=== PATIENT | male | born 1985 | race Caucasian/White ===

== ENCOUNTER 2016-11-01 08:34 | Emergency (ER) | payer SELFPAY ==
[~2016-11-01] VITALS: Ht 185.4 cm; Wt 95.5 kg
[~2016-11-01 08:34] MED LIST: BACT800T5 PO; CEPH500C3 PO; IBUP600T26 PO; LORTA5 PO; METH10TA PO
[2016-11-01 08:36] VITALS: BP 169/91; PULSE 80; RESP 17; TEMP 98; O2SAT 97
[2016-11-01] MEDS ORDERED: SODIUM CHLOR 0.9% 1000 ML INJ 1,000 ML IV SCH (11:29)
[2016-11-01 11:30] VITALS: BP 135/82; PULSE 69; RESP 18; O2SAT 97
[2016-11-01] MEDS ORDERED: SODIUM CHLORIDE 0.9% FLUSH 10 ML FLUSH IV FLUSH PRN (11:30)
--- NOTE | 2016-11-01 11:30 | PD ---
HPI Chief Complaint: Abdominal Pain Time Seen by Provider: 11:30 Travel History International Travel<30 days: No Contact w/Intl Traveler<30days: No Traveled to known affect area: No History of Present Illness HPI 31-year-old male with history of opiate dependency, presents to the emergency department for evaluation right lower quadrant pain with associated nausea and vomiting. Patient states that he had a bloody bowel movement yesterday. Denies any blood in his bowel movement today. Says his without lanie red blood or coffee-ground appearance. Denies any fever or chills. Pain is a sharp stabbing pain in the right lower quadrant. Patient states he does inject IV drugs. Reports severe headache. No recent illnesses, fever, or chills. No photophobia. No nuchal rigidity. States that he does not get migraine headaches. States he last used IV Dilaudid 4 days ago, prior to the onset of these symptoms. No other symptoms to report this time. PFSH Past Medical History Medical History: Denies Significant Hx Cancer: No Diabetes: No Diminished Hearing: Yes (rt) Glaucoma: No Hepatitis: No Hiatal Hernia: No Hypertension: Yes (DOES NOT TAKE MEDS) Immunizations Current: Yes Thyroid Disease: No Past Surgical History Abdominal Surgery: No Cardiac Surgery: No Ear Surgery: Yes (BILATERAL PE TUBES) Endocrine Surgery: No Eye Surgery: No Genitourinary Surgery: No Gynecologic Surgery: No Oral Surgery: No Pacemaker: No Thoracic Surgery: No Social History Alcohol Use: Yes (OCCAS) Tobacco Use: Yes (1 PPD) Substance Use: No Allergies-Medications (Allergen,Severity, Reaction): Coded Allergies: No Known Allergies (Verified , 11/01/16) Reported Meds & Prescriptions Reported Meds & Active Scripts Active Naproxen 500 Mg Tab 500 Mg PO BID PRN Keflex (Cephalexin Monohydrate) 500 Mg Cap 500 Mg PO QID Bactrim DS (Sulfamethoxazole-Trimethoprim DS) 1 Tab Tab 1 Tab PO BID 10 Days Ibuprofen 600 Mg Tab 600 Mg PO TID PRN Hydrocodone/Acetaminophen 5 mg/325 mg Acetaminophen 325/5 Hydrocodone Tab 1 Tab PO Q6H PRN Reported Methadone HCl (Methadone Hcl) 10 Mg Tab 10 Mg PO TID PRN Hydrocodone/Acetaminophen 5 mg/325 mg Acetaminophen 325/5 Hydrocodone Tab 1 Tab PO 5 TIMES A DAY PRN Review of Systems Except as stated in HPI: all other systems reviewed are Neg Physical Exam Narrative GENERAL: Well-nourished male patient, in no acute distress SKIN: Warm and dry. HEAD: Atraumatic. Normocephalic. EYES: Pupils equal and round. No scleral icterus. No injection or drainage. EOMI. ENT: No nasal bleeding or discharge. Mucous membranes pink and moist. NECK: Trachea midline. No JVD. CARDIOVASCULAR: Regular rate and rhythm. No murmur appreciated. RESPIRATORY: No accessory muscle use. Clear to auscultation. Breath sounds equal bilaterally. GASTROINTESTINAL: Abdomen soft, distended. Tenderness elicited palpation right lower quadrant. No guarding. No rebound tenderness.. Hepatic and splenic margins not palpable. MUSCULOSKELETAL: No obvious deformities. No clubbing. No cyanosis. No edema. NEUROLOGICAL: Awake and alert. No obvious cranial nerve deficits. Motor grossly within normal limits. Normal speech. Data Data Last Documented VS Vital Signs Date Time Temp Pulse Resp B/P Pulse Ox O2 Delivery O2 Flow Rate FiO2 11/01/16 16:40 76 16 143/78 100 11/01/16 15:21 Room Air 11/01/16 08:36 98.0 Orders Complete Blood Count With Diff (11/01/16 10:14) Comprehensive Metabolic Panel (11/01/16 10:14) Urinalysis - C+S If Indicated (11/01/16 10:14) Lipase (11/01/16 10:14) Prothrombin Time / Inr (Pt) (11/01/16 11:29) Act Partial Throm Time (Ptt) (11/01/16 11:29) Ct Abd/Pel W Iv Contrast(Rout) (11/01/16 11:29) Iv Access Insert/Monitor (11/01/16 11:29) Ecg Monitoring (11/01/16 11:29) Oximetry (11/01/16 11:29) Sodium Chlor 0.9% 1000 Ml Inj (Ns 1000 M (11/01/16 11:29) Sodium Chloride 0.9% Flush (Ns Flush) (11/01/16 11:30) Electrocardiogram (11/01/16 11:29) Oral Contrast - Adult (11/01/16 11:36) Diatrizoate Liq ( Gastroview Liq) (11/01/16 13:27) Ibuprofen (Motrin) (11/01/16 13:45) Ct Brain W/O Iv Contrast(Rout) (11/01/16 ) Iohexol 350 Inj (Omnipaque 350 Inj) (11/01/16 15:18) Labs Laboratory Tests Test 11/01/16 11/01/16 11:33 15:40 White Blood Count 7.0 TH/MM3 Red Blood Count 5.40 MIL/MM3 Hemoglobin 15.5 GM/DL Hematocrit 45.6 % Mean Corpuscular Volume 84.6 FL Mean Corpuscular Hemoglobin 28.8 PG Mean Corpuscular Hemoglobin 34.1 % Concent Red Cell Distribution Width 15.0 % Platelet Count 161 TH/MM3 Mean Platelet Volume 8.0 FL Neutrophils (%) (Auto) 68.0 % Lymphocytes (%) (Auto) 17.4 % Monocytes (%) (Auto) 8.8 % Eosinophils (%) (Auto) 5.1 % Basophils (%) (Auto) 0.7 % Neutrophils # (Auto) 4.8 TH/MM3 Lymphocytes # (Auto) 1.2 TH/MM3 Monocytes # (Auto) 0.6 TH/MM3 Eosinophils # (Auto) 0.4 TH/MM3 Basophils # (Auto) 0.0 TH/MM3 CBC Comment DIFF FINAL Differential Comment Prothrombin Time 11.1 SEC Prothromb Time International 1.0 RATIO Ratio Activated Partial 30.1 SEC Thromboplast Time Sodium Level 137 MEQ/L Potassium Level 4.4 MEQ/L Chloride Level 104 MEQ/L Carbon Dioxide Level 28.6 MEQ/L Anion Gap 4 MEQ/L Blood Urea Nitrogen 11 MG/DL Creatinine 0.90 MG/DL Estimat Glomerular Filtration 97 ML/MIN Rate Random Glucose 107 MG/DL Calcium Level 8.9 MG/DL Total Bilirubin 0.8 MG/DL Aspartate Amino Transf 108 U/L (AST/SGOT) Alanine Aminotransferase 215 U/L (ALT/SGPT) Alkaline Phosphatase 71 U/L Total Protein 8.3 GM/DL Albumin 3.9 GM/DL Lipase 422 U/L Urine Color LIGHT-YELLOW Urine Turbidity CLEAR Urine pH 6.5 Urine Specific [place] 1.003 Urine Protein NEG mg/dL Urine Glucose (UA) NEG mg/dL Urine Ketones NEG mg/dL Urine Occult Blood NEG Urine Nitrite NEG Urine Bilirubin NEG Urine Urobilinogen LESS THAN 2.0 MG/DL Urine Leukocyte Esterase NEG Urine WBC LESS THAN 1 /hpf Urine Squamous Epithelial <1 /hpf Cells Microscopic Urinalysis Comment CULT NOT INDICATED MDM Medical Decision Making Medical Screen Exam Complete: Yes Emergency Medical Condition: Yes Medical Record Reviewed: Yes Differential Diagnosis Opiate withdrawal versus abdominal cramping versus colitis versus appendicitis cluster headache versus migraine headache versus tension headache Narrative Course 31-year-old male presents to our department for evaluation right lower quadrant pain. Patient appears well and without distress. Vital signs are stable. No focal deficits or weakness. He does have right lower quadrant tenderness to palpation. Patient is reporting a significant headache which he does not have history of migraine headaches. Last used IV drugs 4 days ago which was prior to onset of these symptoms. This could possibly be symptoms of opiate withdrawal. Patient does not believe so. Andrea prompt is negative. CBC is without acute concern. CMP is with elevated AST 108, ALT 2:15. Lipase is 422. Patient has no left or upper or right upper quadrant tenderness to palpation. Urinalysis is unremarkable. CT of the abdomen and pelvis shows enlarged right liver. Splenomegaly. Degenerative changes and scoliosis of the thoracolumbar spine minimal atelectatic changes within the left posterior lung base. ET of the brain is without acute disease. I discussed the patient my attending physician Dr. Childers who agrees he can be discharged at this time. Patient states that he is feeling better after his fluids and antibiotic. He agrees to return immediately with any acute worsening symptoms H[facility]Prompt Point of Care Internal Pos. & Neg. Controls: Passed Fecal Specimen Occult Blood: Negative Diagnosis Primary Impression: Abdominal pain Qualified Code: R10.31 - Right lower quadrant abdominal pain Additional Impressions: Hepatosplenomegaly Opiate dependence Qualified Code: F11.20 - Uncomplicated opioid dependence Referrals: Primary Care Physician Patient Instructions: Abdominal Pain (ED), General Instructions Additional Instructions: Follow-up with a primary care provider Seek gastroenterology evaluation if symptoms persist Return immediately with any acute worsening of symptoms Med/Other Pt SpecificInfo: Prescription(s) given Scripts Naproxen 500 Mg [id number] Mg PO BID PRN (PAIN SCALE 1 TO 10) #30 TAB Ref 0 Prov:Erica Adams 11/01/16 Disposition: 01 DISCHARGE HOME Condition: Stable Erica Adams Nov 01, 2016 11:30
[2016-11-01 12:05] LABS: AUTOMATED NEUTROPHIL # 4.8 TH/MM3 (1.8-7.7); BASOPHIL % 0.7 % (0.0-2.0); EOSINOPHIL # 0.4 TH/MM3 (0-0.4); EOSINOPHIL % 5.1 % (0.0-4.0); HEMATOCRIT 45.6 % (39.0-51.0); HEMO FLAGS DIFF FINAL; LYMPH % 17.4 % (9.0-44.0); LYMPHOCYTE # 1.2 TH/MM3 (1.0-4.8); MEAN CELL VOLUME 84.6 FL (80.0-100.0); MEAN CORPUSCULAR HEMOGLOBIN 28.8 PG (27.0-34.0); MEAN CORPUSCULAR HGB CONC 34.1 % (32.0-36.0); MONO % 8.8 % (0.0-8.0); PLATELET COUNT 161 TH/MM3 (150-450)
[2016-11-01 12:10] LABS: APTT (PATIENT) 30.1 SEC (24.3-30.1); PROTHROMBIN TIME - PATIENT 11.1 SEC (9.8-11.6)
[2016-11-01 12:19] LABS: ANION GAP 4 MEQ/L (5-15); AST (GOT) 108 U/L (15-37); BICARBONATE 28.6 MEQ/L (21.0-32.0); BLOOD UREA NITROGEN 11 MG/DL (7-18); CHLORIDE 104 MEQ/L (98-107); GLOMERULAR FILTRATION RATE 97 ML/MIN (>89); POTASSIUM 4.4 MEQ/L (3.5-5.1); SODIUM (NA) 137 MEQ/L (136-145)
[2016-11-01 12:25] LABS: ALKALINE PHOSPHATASE 71 U/L (45-117); ALT (GPT) 215 U/L (12-78); TOTAL BILIRUBIN ADULT 0.8 MG/DL (0.2-1.0)
[2016-11-01] MEDS ORDERED: DIATRIZOATE MEGLUM/DIATRIZOATE SOD 9 ML CUP ONE (13:27)
[2016-11-01] MEDS ORDERED: IBUPROFEN 800 MG TAB PO ONE (13:45)
[2016-11-01] MEDS ORDERED: IOHEXOL 350 MG/ML 10 ML VIAL (for RAD DIAG) IV ONE (15:18)
[2016-11-01 15:21] VITALS: BP 142/72; PULSE 72; RESP 18; O2SAT 100
--- NOTE | 2016-11-01 15:27 | RADRPT ---
EXAM DATE/TIME: 11/01/2016 14:56 [facility] COMPARISON: No previous studies available for comparison. INDICATIONS : Cephalgia. RADIATION DOSE: 62.67 CTDIvol (mGy) MEDICAL HISTORY : Hypertension. SURGICAL HISTORY : None. ENCOUNTER: Initial ACUITY: 2 days PAIN SCALE: 2/10 LOCATION: cranial TECHNIQUE: Multiple contiguous axial images were obtained of the head. Using automated exposure control and adj ustment of the mA and/or kV according to patient size, radiation dose was kept as low as reasonably a chievable to obtain optimal diagnostic quality images. FINDINGS: CEREBRUM: The ventricles are normal for age. No evidence of midline shift, mass lesion, hemorrhage or acute in farction. No extra-axial fluid collections are seen. POSTERIOR FOSSA: The cerebellum and brainstem are intact. The 4th ventricle is midline. The cerebellopontine angle i s unremarkable. EXTRACRANIAL: The visualized portion of the orbits is intact. SKULL: The calvaria is intact. No evidence of skull fracture. CONCLUSION: No acute disease. Bradly Mandel MD on November 01, 2016 at 15:25 Board Certified Radiologist. This report was verified electronically.
--- NOTE | 2016-11-01 15:33 | RADRPT ---
EXAM DATE/TIME: 11/01/2016 15:02 [facility] COMPARISON: No previous studies available for comparison. INDICATIONS : Right lower quadrant pain with vomiting and blood in stool. IV CONTRAST: 96 cc Omnipaque 350 (iohexol) IV ORAL CONTRAST: Prescribed oral contrast ingested. RADIATION DOSE: 62.67 CTDIvol (mGy) MEDICAL HISTORY : Hypertension. SURGICAL HISTORY : None. ENCOUNTER: Initial ACUITY: 2 days PAIN SCALE: 4/10 LOCATION: Right lower quadrant TECHNIQUE: Volumetric scanning of the abdomen and pelvis was performed. Using automated exposure control and ad justment of the mA and/or kV according to patient size, radiation dose was kept as low as reasonably achievable to obtain optimal diagnostic quality images. FINDINGS: LOWER LUNGS: Minimal atelectatic changes are noted within the left posterior lung base. LIVER: The liver is enlarged and demonstrates mild diffuse fatty infiltration. No focal mass is noted. There is no dilation of the biliary tree. No calcified gallstones. SPLEEN: Splenomegaly without focal lesion. PANCREAS: Within normal limits. KIDNEYS: Normal in size and shape. There is no mass, stone or hydronephrosis. ADRENAL GLANDS: Within normal limits. VASCULAR: There is no aortic aneurysm. BOWEL/MESENTERY: The stomach, small bowel, and colon demonstrate no acute abnormality. There is no free intraperitone al air or fluid. ABDOMINAL WALL: Within normal limits. RETROPERITONEUM: There is no lymphadenopathy. BLADDER: No wall thickening or mass. REPRODUCTIVE: Within normal limits. INGUINAL: There is no lymphadenopathy or hernia. MUSCULOSKELETAL: Degenerative changes and scoliosis of the thoracolumbar spine. CONCLUSION: 1. Enlarged fatty liver. 2. Splenomegaly. 3. Degenerative changes and scoliosis of the thoracolumbar spine. 4. Minimal atelectatic changes within the left posterior lung base. Bradly Mandel MD on November 01, 2016 at 15:28 Board Certified Radiologist. This report was verified electronically.
[2016-11-01 16:04] LABS: BLOOD, URINE NEG (NEG); GLUCOSE,URINE NEG (NEG); KETONE, URINE NEG (NEG); NITRITE,URINE NEG (NEG); PH, URINE 6.5 (5.0-8.5); SQUAMOUS EPITHELIAL CELL URINE <1 /hpf (0-5); URINE COLOR LIGHT-YELLOW (YELLW/STRAW)
[2016-11-01 16:06] LABS: COMMENT (UR) CULT NOT INDICATED; CULTURE IF INDICATED CULT NOT INDICATED
[2016-11-01] MEDS ORDERED: NAPR500T PO (16:14)
[2016-11-01 16:40] VITALS: BP 143/78
--- NOTE | 2016-11-03 11:26 | EKG ---
Date Performed: 11/01/2016 Time Performed: 11:57:20 PTAGE: 31 years EKG: Sinus rhythm EARLY REPOLARIZATION BORDERLINE ECG NO PREVIOUS TRACING DOCTOR: Marco Bhatti Interpretating Date/Time 11/03/2016 11:24:00
== END 2016-11-01 16:43 | disposition home or self-care (01) ==
LOC: NEPC 08:34
DX: R10.31 Right lower quadrant pain (principal); R16.2 Hepatomegaly with splenomegaly, not elsewhere classified; F11.20 Opioid dependence, uncomplicated; F17.200 Nicotine dependence, unspecified, uncomplicated; R51 Headache; I10 Essential (primary) hypertension
CPT/HCPCS: 70450; 74177; 80053; 81001; 83690; 85025; 85610; 85730; 93005; 96360; 96361; 99284; J7030; Q9963; Q9967

== ENCOUNTER 2017-02-13 20:11 | Emergency (ER) | payer SELFPAY ==
[~2017-02-13] VITALS: Ht 185.4 cm; Wt 101.7 kg
[~2017-02-13 20:11] MED LIST changes: +NAPR500T PO
[2017-02-13 20:20] VITALS: BP 148/99; PULSE 78; RESP 16; TEMP 98.2; O2SAT 96
[2017-02-13] MEDS ORDERED: DEXAMETHASONE SOD PHOS 4 MG/ML VIAL IM ONE (21:30)
[2017-02-13] MEDS ORDERED: KETOROLAC TROMETHAMINE 60 MG/2 ML (IM) VIAL IM ONE (21:30)
[2017-02-13] MEDS ORDERED: ORPHENADRINE INJ 60 MG/2 ML AMP IM ONE (21:30)
--- NOTE | 2017-02-13 21:34 | PD ---
HPI Chief Complaint: Back/ Neck Pain or Injury Time Seen by Provider: 21:15 Travel History International Travel<30 days: No Contact w/Intl Traveler<30days: No Traveled to known affect area: No History of Present Illness HPI 31-year-old male presents to the emergency room for evaluation of acute on chronic low back pain. Patient states he has history of degenerative disc disease and has been to pain management for this in the past but they only gave him narcotic pain medication which he did not feel was appropriate. Patient had an MRI 3 years ago that showed degenerative disc disease. He states today' s pain is worse than normal. It is sharp, stabbing in the middle of his back and radiating down his right lower extremity. He has had right-sided sciatica in the past but it has been a long time. He has been taking Aleve with the prescribed without significant relief in symptoms. 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 He denies upper or lower extremity paresthesias, saddle anesthesia, or loss of bowel or bladder control. Denies IV drug use. PFSH Past Medical History Cancer: No Diabetes: No Diminished Hearing: Yes (rt) Glaucoma: No Hepatitis: No Hiatal Hernia: No Hypertension: Yes (DOES NOT TAKE MEDS) Medical other: Yes (BACK, NECK PROBLEMS DDD) Immunizations Current: Yes Thyroid Disease: No Past Surgical History Abdominal Surgery: No Cardiac Surgery: No Ear Surgery: Yes (BILATERAL PE TUBES) Endocrine Surgery: No Eye Surgery: No Genitourinary Surgery: No Gynecologic Surgery: No Oral Surgery: No Pacemaker: No Thoracic Surgery: No Tonsillectomy: Yes Social History Alcohol Use: Yes (OCCAS) Tobacco Use: Yes (1 PPD) Substance Use: No Allergies-Medications (Allergen,Severity, Reaction): Coded Allergies: No Known Allergies (Verified , 02/13/17) Reported Meds & Prescriptions Reported Meds & Active Scripts Active Robaxin (Methocarbamol) 750 Mg Tab 750 Mg PO Q8HR Ibuprofen 600 Mg Tab 600 Mg PO Q8HR PRN Review of Systems Except as stated in HPI: all other systems reviewed are Neg Physical Exam Narrative GENERAL: Well-nourished, well-developed male in no acute distress. Afebrile. Ambulatory. SKIN: Focused skin assessment warm/dry. No erythema or ecchymosis. HEAD: Normocephalic. EYES: No scleral icterus. No injection or drainage. NECK: Supple, trachea midline. No JVD or lymphadenopathy. CARDIOVASCULAR: Regular rate and rhythm without murmurs, gallops, or rubs. RESPIRATORY: Breath sounds equal bilaterally. No accessory muscle use. BACK: No obvious deformity. No CVA tenderness. Mild tenderness to palpation of the lumbar paraspinous musculature on the right side. Positive straight leg raise. 2+ patellar and Achilles reflexes are equal bilaterally. Strength 5/5 and equal in lower extremities bilaterally. Data Data Last Documented VS Vital Signs Date Time Temp Pulse Resp B/P Pulse Ox O2 Delivery O2 Flow Rate FiO2 02/13/17 20:20 98.2 78 16 148/99 96 Orders Dexamethasone Inj (Decadron Inj) (02/13/17 21:30) Ketorolac Inj (Toradol Inj) (02/13/17 21:30) Orphenadrine Inj (Norflex Inj) (02/13/17 21:30) MDM Medical Decision Making Medical Screen Exam Complete: Yes Emergency Medical Condition: Yes Medical Record Reviewed: Yes Differential Diagnosis Sciatica, muscle spasm, strain, fracture, degenerative disc disease Narrative Course 1-year-old male with history of chronic low back pain presents to the emergency room for evaluation of acute low back pain with right-sided sciatica for the past 5 days. Patient states this pain is slightly worse than his normal pain. 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 He denies lower extremity paresthesias, loss of bowel or bladder control, saddle anesthesia, and inability to ambulate. He is ambulatory in the emergency room. Lower extremities are neurovascularly intact with 2+ Achilles and patellar reflexes and 5/5 strength equal bilaterally. Positive straight leg raise. No step-off deformity or midline tenderness of the spine. Mild tenderness to palpation of the right paraspinous musculature. He denies IV drug use. Vital signs stable. No indication for imaging at this time. Patient was given Toradol, Norflex, and Decadron in the emergency room. He'll be discharged with prescriptions for ibuprofen and Robaxin. Told to follow up with a primary care physician or return for worsening symptoms. He understands and agrees to plan. Diagnosis Primary Impression: Right sided sciatica Referrals: [facility] Primary Care Physician Patient Instructions: General Instructions, Sciatica (ED) Additional Instructions: Rest and drink plenty of fluids. Take Robaxin as directed, as needed for pain. Take ibuprofen with food as directed, as needed for pain. Apply ice to the affected area for 20 minutes at a time, as needed for pain and swelling. Follow-up with a primary care physician. Return to the emergency room for worsening symptoms. Med/Other Pt SpecificInfo: Prescription(s) given Scripts Methocarbamol (Robaxin)750 Mg [id number] Mg PO Q8HR #12 TAB Ref 0 Prov:Di Arenas MD 02/13/17 Ibuprofen 600 Mg [id number] Mg PO Q8HR PRN (PAIN) #21 TAB Ref 0 Prov:Di Arenas MD 02/13/17 Disposition: 01 DISCHARGE HOME Condition: Stable Rosio Dominique Feb 13, 2017 21:34
[2017-02-13] MEDS ORDERED: IBUP-232 PO (21:45)
[2017-02-13] MEDS ORDERED: ROBA750T PO (21:45)
== END 2017-02-13 21:52 | disposition home or self-care (01) ==
LOC: PHEFT 20:11
DX: M54.41 Lumbago with sciatica, right side (principal); G89.29 Other chronic pain; I10 Essential (primary) hypertension; H91.91 Unspecified hearing loss, right ear; F17.200 Nicotine dependence, unspecified, uncomplicated; Z87.39 Personal history of other diseases of the musculoskeletal system and connective tissue
CPT/HCPCS: 96372; 99284; J1100; J1885; J2360

== ENCOUNTER 2017-03-19 02:58 | Emergency (ER) | payer SELFPAY ==
[~2017-03-19] VITALS: Ht 185.4 cm; Wt 97.0 kg
[~2017-03-19 02:58] MED LIST changes: -BACT800T5 PO; -CEPH500C3 PO; +IBUP-232 PO; -IBUP600T26 PO; -LORTA5 PO; -METH10TA PO; -NAPR500T PO; +ROBA750T PO
[2017-03-19 03:02] VITALS: BP 164/72; PULSE 91; RESP 16; TEMP 98.1; O2SAT 99
[2017-03-19] MEDS ORDERED: LISI10TA3 PO (03:08)
--- NOTE | 2017-03-19 03:38 | RADRPT ---
EXAM DATE/TIME: 03/19/2017 03:20 [facility] COMPARISON: No previous studies available for comparison. INDICATIONS : Fall on left shoulder 5 days ago. MEDICAL HISTORY : None. SURGICAL HISTORY : None. ENCOUNTER: Subsequent ACUITY: 4 - 6 days PAIN SCORE: 0/10 LOCATION: Left clavicle FINDINGS: There is normal bone density. There is a question of dislocation of the left sternoclavicular joint w ith asymmetric superior positioning of the left medial clavicle as compared to the right. The acromio clavicular and coracoclavicular joint space width is intact. CONCLUSION: Possible left SC joint dislocation without obvious fracture deformity. Dmitri Guevara MD on March 19, 2017 at 3:35 Board Certified Radiologist. This report was verified electronically.
[2017-03-19 05:52] VITALS: BP 136/61; PULSE 67; RESP 18; O2SAT 100
[2017-03-19] MEDS ORDERED: HYDR-3533 PO (06:04)
[2017-03-19] MEDS ORDERED: DICL75TA PO (06:04)
[2017-03-19] MEDS ORDERED: ACETAMINOPHEN/HYDROcodone 325 MG/5 MG TAB PO ONE (06:15)
--- NOTE | 2017-03-19 06:17 | PD ---
HPI Chief Complaint: Fall Time Seen by Provider: 06:12 Travel History International Travel<30 days: No Contact w/Intl Traveler<30days: No Traveled to known affect area: No History of Present Illness HPI 32-year-old [id number] white male presents to emergency department complaints of left shoulder pain. He had fallen off a ladder 5 days ago. He states that he was approximately 7 feet in the air on the ladder when he lost his balance falling down onto his left side. Patient felt immediate pain and had deformity of his left clavicle. Since then the pain has been persistent. Moderate to severe. Worse with movement. He has some relief with cradling his arm. He denies injury to his head, neck or upper back. He does complain some mild lower back discomfort. He denies any focal numbness or tingling. No acute bowel or bladder changes. PFSH Past Medical History Cancer: No Diabetes: No Diminished Hearing: Yes (rt) Glaucoma: No Hepatitis: No Hiatal Hernia: No Hypertension: Yes (DOES NOT TAKE MEDS) Medical other: Yes (BACK, NECK PROBLEMS DDD) Immunizations Current: Yes Thyroid Disease: No Past Surgical History Abdominal Surgery: No Cardiac Surgery: No Ear Surgery: Yes (BILATERAL PE TUBES) Endocrine Surgery: No Eye Surgery: No Genitourinary Surgery: No Gynecologic Surgery: No Oral Surgery: No Pacemaker: No Thoracic Surgery: No Tonsillectomy: Yes Social History Alcohol Use: Yes (OCCAS) Tobacco Use: Yes (1 PPD) Substance Use: No Allergies-Medications (Allergen,Severity, Reaction): Coded Allergies: No Known Allergies (Verified , 03/19/17) Reported Meds & Prescriptions Reported Meds & Active Scripts Active Diclofenac Sodium DR (Diclofenac Sodium) 75 Mg Tabdr 75 Mg PO BID Lortab (Hydrocodone-Acetaminophen) 5-325 Mg Tab 1 Tab PO Q4H PRN Reported Lisinopril 10 Mg Tab 10 Mg PO BID Review of Systems Except as stated in HPI: all other systems reviewed are Neg Physical Exam Narrative GENERAL: Well-developed, well-nourished in no apparent distress. Nontoxic appearing. HEAD: Normocephalic, atraumatic. EYES: Pupils equal round and reactive. Extraocular motions intact. No scleral icterus. No injection or drainage. ENT: Nose clear. Throat without erythema, tonsillar hypertrophy or exudate. Uvula midline. Airway patent. NECK: Trachea midline. Supple, nontender, moves head freely. No central bony tenderness or spasm. CARDIOVASCULAR: Regular rate and rhythm without murmurs, gallops, or rubs. RESPIRATORY: Clear to auscultation. Breath sounds equal bilaterally. No wheezes , rales, or rhonchi. GASTROINTESTINAL: Abdomen soft, non-tender, nondistended. No hepato-splenomegaly , or palpable masses. No guarding. EXTREMITIES: No clubbing, cyanosis, or edema. Examination the left upper extremity reveals an obvious deformity of the left sternoclavicular joint. The patient is holding his arm in an awkward position due to pain. There is no pain in the glenohumeral joint. No acromial clavicular joint pain. Patient is neurovascularly intact distally. The right upper extremity as well as a lower extremity is are unremarkable for acute bony tenderness or deformity. BACK: Nontender without deformity. No flank tenderness. NEUROLOGICAL: Awake, alert and oriented x 3 .Cranial nerves grossly intact. Motor and sensory grossly within normal limits. Normal speech. Data Data Last Documented VS Vital Signs Date Time Temp Pulse Resp B/P Pulse Ox O2 Delivery O2 Flow Rate FiO2 03/19/17 05:52 67 18 136/61 100 Room Air 03/19/17 03:02 98.1 Orders Clavicle (03/19/17 03:06) Splint Or Brace Apply/Monitor (03/19/17 06:03) Acetamin-Hydrocod 325-5 Mg ([place] 5-325 (03/19/17 06:15) [facility] Medical Decision Making Medical Screen Exam Complete: Yes Emergency Medical Condition: Yes Medical Record Reviewed: Yes Interpretation(s) Last 24 hours Impressions Clavicle X-Ray 03/19/17 0306 Signed Impressions: Service Date/Time: Sunday, March 19, 2017 03:20 - CONCLUSION: Possible left SC joint dislocation without obvious fracture deformity. Dmitri Guevara MD Differential Diagnosis MDM: High Differential diagnoses: Fracture, sprain, strain, dislocation, contusion, neurovascular injury Narrative Course X-ray of the left clavicle reveals a sternoclavicular dislocation. No obvious fracture. I discussed the case with Dr. Fonseca the orthopedist finance consultant. He has recommended the patient be placed in a [id number] and a sling. He states that this is not an operative type process. He states that they typically leave them dislocated and they follow-up in the office. This is left sternoclavicular joint anterior dislocation Diagnosis Primary Impression: Anterior dislocation of left sternoclavicular joint, initial encounter Patient Instructions: Narcotic given in the ED, General Instructions Additional Instructions: Rest. Sling. Lortab and diclofenac. Mandatory outpatient referral to orthopedics. Return to the ER for emergencies. Med/Other Pt SpecificInfo: Prescription(s) given Scripts Diclofenac Sodium DR 75 Mg Tabdr75 Mg PO BID #30 TAB Prov:Yissel Mayfield MD 03/19/17 Hydrocodone-Acetaminophen (Lortab)5-325 Mg Tab1 Tab PO Q4H PRN (PAIN) #20 TAB Prov:Yissel Mayfield MD 03/19/17 Disposition: 01 DISCHARGE HOME Condition: Stable Chance Philip Mar 19, 2017 06:17
== END 2017-03-19 06:47 | disposition home or self-care (01) ==
LOC: NEPD 02:58
DX: S43.215A Anterior dislocation of left sternoclavicular joint, initial encounter (principal); W11.XXXA Fall on and from ladder, initial encounter
CPT/HCPCS: 73000; 99284

== ENCOUNTER 2017-11-21 23:35 | Emergency (ER) | payer SELFPAY ==
[~2017-11-21 23:35] MED LIST changes: +DICL75TA PO; +HYDR-3533 PO; -IBUP-232 PO; +LISI10TA3 PO; -ROBA750T PO
[2017-11-21 23:54] VITALS: BP 148/71; PULSE 77; RESP 18; TEMP 98.4; O2SAT 98
[2017-11-22 00:06] VITALS: BP 133/77; PULSE 78; RESP 16; O2SAT 74; O2SAT 97
--- NOTE | 2017-11-22 00:27 | PD ---
HPI Chief Complaint: Skin Problem Time Seen by Provider: 00:10 Travel History International Travel<30 days: No Contact w/Intl Traveler<30days: No Traveled to known affect area: No History of Present Illness HPI Patient is a 32-year-old male coming in covered in multiple scabbed areas that look mildly infected however there is no abscess is seen. On the extensor surface of his arms bilaterally as well as on the legs and almost has the appearance of skin popping presentation. Patient is putting bacitracin on them and without much relief of his symptoms however none of them have progressed abscesses at this time none of them are weeping pus at this time he has not taken any oral antibiotics but he is doing topical bacitracin with moderate relief of his symptoms PFSH Past Medical History Cancer: No Diabetes: No Diminished Hearing: Yes (RT) Glaucoma: No Hepatitis: No Hiatal Hernia: No Hypertension: Yes Medical other: Yes (BACK, NECK PROBLEMS DDD) Immunizations Current: Yes Thyroid Disease: No Past Surgical History Abdominal Surgery: No Cardiac Surgery: No Ear Surgery: Yes (BILATERAL PE TUBES) Endocrine Surgery: No Eye Surgery: No Genitourinary Surgery: No Gynecologic Surgery: No Oral Surgery: No Pacemaker: No Thoracic Surgery: No Tonsillectomy: Yes Social History Alcohol Use: Yes (OCCAS) Tobacco Use: Yes (1 PPD) Substance Use: Yes (DILUADID IV) Allergies-Medications (Allergen,Severity, Reaction): Coded Allergies: No Known Allergies (Verified Adverse Reaction, Unknown, 11/21/17) Reported Meds & Prescriptions Reported Meds & Active Scripts Active Bactrim DS (Sulfamethoxazole-Trimethoprim) 800-160 Mg Tab 1 Tab PO BID Review of Systems Except as stated in HPI: all other systems reviewed are Neg Skin: Positive Lesions (Multiple areas of scabs and redness and erythema but no signs of obvious cellulitis nor abscess) Physical Exam Narrative GENERAL: Nontoxic appearing awake alert SKIN: Warm and dry. Multiple areas of small skin infections peeling the different stages minimal cellulitis no abscesses appears like possibly "skin popping" 'HEAD: Atraumatic. Normocephalic. EYES: Pupils equal and round. No scleral icterus. No injection or drainage. ENT: No nasal bleeding or discharge. Mucous membranes pink and moist. NECK: Trachea midline. No JVD. CARDIOVASCULAR: Regular rate and rhythm. RESPIRATORY: No accessory muscle use. Clear to auscultation. Breath sounds equal bilaterally. GASTROINTESTINAL: Abdomen ruq tender with palpation pain soft, nondistended. Hepatic and splenic margins not palpable. MUSCULOSKELETAL: Extremities without clubbing, cyanosis, or edema. No obvious deformities. NEUROLOGICAL: Awake and alert. No obvious cranial nerve deficits. Motor grossly within normal limits. Five out of 5 muscle strength in the arms and legs. Normal speech. PSYCHIATRIC: Appropriate mood and affect; insight and judgment normal. Data Data Last Documented VS Vital Signs Date Time Temp Pulse Resp B/P (MAP) Pulse Ox O2 Delivery O2 Flow Rate FiO2 11/22/17 06:01 11/22/17 04:06 98.3 60 16 97 Room Air Orders Orders Sulfamet-Trimeth Ds 800-160 Mg (Bactrim (11/22/17 00:30) Comprehensive Metabolic Panel (11/22/17 01:18) Complete Blood Count With Diff (11/22/17 01:18) Hepatitis Profile (11/22/17 01:18) Lipase (11/22/17 01:18) Ketorolac Inj (Toradol Inj) (11/22/17 01:30) Ed Discharge Order (11/22/17 05:29) Labs Laboratory Tests Test 11/22/17 01:35 White Blood Count 8.0 TH/MM3 Red Blood Count 4.33 MIL/MM3 Hemoglobin 12.2 GM/DL Hematocrit 35.8 % Mean Corpuscular Volume 82.7 FL Mean Corpuscular Hemoglobin 28.1 PG Mean Corpuscular Hemoglobin Concent 34.0 % Red Cell Distribution Width 15.2 % Platelet Count 218 TH/MM3 Mean Platelet Volume 7.5 FL Neutrophils (%) (Auto) 66.5 % Lymphocytes (%) (Auto) 22.6 % Monocytes (%) (Auto) 7.5 % Eosinophils (%) (Auto) 2.7 % Basophils (%) (Auto) 0.7 % Neutrophils # (Auto) 5.3 TH/MM3 Lymphocytes # (Auto) 1.8 TH/MM3 Monocytes # (Auto) 0.6 TH/MM3 Eosinophils # (Auto) 0.2 TH/MM3 Basophils # (Auto) 0.1 TH/MM3 CBC Comment DIFF FINAL Differential Comment Blood Urea Nitrogen 7 MG/DL Creatinine 0.93 MG/DL Random Glucose 105 MG/DL Total Protein 8.3 GM/DL Albumin 3.3 GM/DL Calcium Level 8.7 MG/DL Alkaline Phosphatase 59 U/L Aspartate Amino Transf (AST/SGOT) 14 U/L Alanine Aminotransferase (ALT/SGPT) 10 U/L Total Bilirubin 0.5 MG/DL Sodium Level 139 MEQ/L Potassium Level 3.9 MEQ/L Chloride Level 104 MEQ/L Carbon Dioxide Level 28.1 MEQ/L Anion Gap 7 MEQ/L Estimat Glomerular Filtration Rate 93 ML/MIN Lipase 100 U/L Hepatitis A IgM Antibody NONREACTIVE Hepatitis B Surface Antigen NONREACTIVE Hepatitis B Core IgM Antibody NONREACTIVE Hepatitis C IgG Antibody REACTIVE MDM Medical Decision Making Medical Screen Exam Complete: Yes Emergency Medical Condition: Yes Differential Diagnosis Patient is having skin infections as well as right upper quadrant pain differential diagnosis is cellulitis versus abscess versus cholecystitis versus hepatitis versus renal stones abdomen pain NOS right-sided rib pain other Narrative Course Patient's LFTs are normal patient's labs are normal patient is given Bactrim p.o. bedside ultrasound done by this MD does not show any gallstones or any signs of cholecystitis patient's hepatitis panel is pending he will be discharged with Bactrim twice daily for 10 days to help clear up the skin infections patient is encouraged to not use IV drugs anymore I discussed with him the possibility of getting into a program he said he has gone through a before and lives in a sober house and encourage him to repeat the process Pt Hepatitis C antibiody positive I discuss this finding with him and explain of treatment and possible cure options that now exist . I explain [facility] may be able to arrange GI consult to explore his options. I also mention sobriety may help him get into a treatment program . POC US ABDO liver appears normal with no obvious abnormality Procedures Procedure Narrative [id number] bedside ultrasound of gallbladder liver right kidney all within normal limits of right upper quadrant ultrasound no free fluid in architecture of liver looks normal there are no stones in the gallbladder minimal thickening of gallbladder wall there is no pericholecystic fluid it is a normal gallbladder ultrasound Diagnosis Primary Impression: Skin infection Additional Impression: RUQ abdominal pain Referrals: [facility] Patient Instructions: General Instructions, Wound Infection (ED) Scripts Sulfamethoxazole-Trimethoprim (Bactrim DS) 800-160 Mg Tab 1 TAB PO BID for Infection, #14 TAB 0 Refills Prov: Mata Lyons MD 11/22/17 Disposition: 01 DISCHARGE HOME Condition: Good Mata Lyons MD Nov 22, 2017 00:27
[2017-11-22] MEDS ORDERED: SULFAMETHOXAZOLE-TRIMETHOPRIM DS 800-160 MG TAB PO ONE (00:30)
[2017-11-22] MEDS ORDERED: KETOROLAC TROMETHAMINE 60 MG/2 ML (IM) VIAL IM ONE (01:30)
[2017-11-22 01:43] VITALS: BP 133/75; PULSE 70; RESP 16; TEMP 98.4; O2SAT 98
[2017-11-22 02:19] LABS: AUTOMATED NEUTROPHIL # 5.3 TH/MM3 (1.8-7.7); BASOPHIL # 0.1 TH/MM3 (0-0.2); BASOPHIL % 0.7 % (0.0-2.0); EOSINOPHIL # 0.2 TH/MM3 (0-0.4); EOSINOPHIL % 2.7 % (0.0-4.0); HEMATOCRIT 35.8 % (39.0-51.0); HEMOGLOBIN 12.2 GM/DL (13.0-17.0); LYMPH % 22.6 % (9.0-44.0); LYMPHOCYTE # 1.8 TH/MM3 (1.0-4.8); MEAN CELL VOLUME 82.7 FL (80.0-100.0); MEAN CORPUSCULAR HEMOGLOBIN 28.1 PG (27.0-34.0); MEAN PLATELET VOLUME 7.5 FL (7.0-11.0); MONO % 7.5 % (0.0-8.0); MONOCYTE # 0.6 TH/MM3 (0-0.9); NEUT % 66.5 % (16.0-70.0); PLATELET COUNT 218 TH/MM3 (150-450); RED BLOOD COUNT 4.33 MIL/MM3 (4.50-5.90); RED CELL DISTRIBUTION WIDTH 15.2 % (11.6-17.2)
[2017-11-22 02:29] LABS: ALBUMIN 3.3 GM/DL (3.4-5.0); ALT (GPT) 10 U/L (12-78); AST (GOT) 14 U/L (15-37); BICARBONATE 28.1 MEQ/L (21.0-32.0); BLOOD UREA NITROGEN 7 MG/DL (7-18); CALCIUM 8.7 MG/DL (8.5-10.1); CHLORIDE 104 MEQ/L (98-107); CREATININE 0.93 MG/DL (0.60-1.30); GLOMERULAR FILTRATION RATE 93 ML/MIN (>89); GLUCOSE,RANDOM 105 MG/DL (74-106); SODIUM (NA) 139 MEQ/L (136-145)
[2017-11-22 02:32] LABS: ALKALINE PHOSPHATASE 59 U/L (45-117); TOTAL BILIRUBIN ADULT 0.5 MG/DL (0.2-1.0); TOTAL PROTEIN 8.3 GM/DL (6.4-8.2)
[2017-11-22 04:06] VITALS: BP 113/59; PULSE 60; RESP 16; TEMP 98.3; O2SAT 97
[2017-11-22] MEDS ORDERED: BACT800T5 PO (05:31)
== END 2017-11-22 06:04 | disposition home or self-care (01) ==
LOC: NEPC 23:35
DX: L08.9 Local infection of the skin and subcutaneous tissue, unspecified (principal); R10.11 Right upper quadrant pain; F17.200 Nicotine dependence, unspecified, uncomplicated
CPT/HCPCS: 80053; 80074; 83690; 85025; 96372; 99284; J1885